=== PATIENT | female | born 1945 | race African-American/Black ===

== ENCOUNTER → 2023-07-12 10:22 | Outpatient (BNVA) | payer MEDICARE, OTHER, SELFPAY | PROVIDERS: PCP Internal Medicine Endocrinology, Diabetes & Metabolism; Visit Provider Surgery ==

== ENCOUNTER 2023-08-08 13:39 | Outpatient (AMB) | payer MEDICARE, SELFPAY ==
[2023-08-08 13:49] VITALS: BP 157/67; PULSE 73; TEMP 36.4; O2SAT 94; BMI 44.3
--- NOTE | 2023-08-08 13:49 | MHC.OFFVISWM ---
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 Allergies celecoxib [From Celebrex] Allergy (Severe, Verified 08/08/23 13:52) Anaphylaxis Sulfa (Sulfonamide Antibiotics) Allergy (Intermediate, Verified 08/08/23 13:52) Rash amphotericin B [From Amphocin] Allergy (Mild, Verified 08/08/23 13:52) Rash iv dye Allergy (Intermediate, Uncoded 08/08/23 13:52) Anaphylaxis Medication List - Last Reconciled 08/08/23 by DESTINEE Cowart calcium carbonate 500 mg PO DAILY cyanocobalamin (vitamin B-12) 1,000 mcg PO DAILY cyclobenzaprine 10 mg PO TID escitalopram oxalate (Lexapro) 10 mg PO DAILY gabapentin 400 mg PO TID ipratropium-albuterol 18-103 mcg/actuation sprays inhalation omeprazole 40 mg PO DAILY oxybutynin chloride ER 10 mg PO DAILY semaglutide (Ozempic) 2 mg subcut QWEEK valacyclovir 1,000 mg PO Q8H HPI Comments Details: Pt is here to start the [facility] surgical weight loss program. Her goal is to lose weight and achieve a healthy lifestyle as well as to improve, if not resolve, obesity related medical conditions, including arthritis. She reports she underwent gastric bypass in approximately 1997 in [facility] by Dr. Hernando Carpenter. Current weight is 242.2 pounds with a BMI of 44.3. She has returned to [place] multiple times to follow with her orthopedic surgeon who states that she needs to lose weight to perform her needed left total knee replacement. This is under a workman's comp case. Additionally, she has not seen bariatric surgery for follow-up in approximately 10 years. She lives with her . She does not work. Takes PPI 3-4 x per week takes MVI 3-4 x per week. She wakes at:?6 am, and goes to bed at?8 pm. Dinner is at 6 pm. Breakfast: 1 egg w turkey [place], coffee w splenda and almond milk AM snack: fruit and cottage cheese Lunch: skip or leftover or fruit, toast w jam PM snack: chips Dinner: fish, chicken, pasta w seafood After dinner: skip Other snacks: cracker, benevido wafer, Liquids: 16 oz water daily, no soda, peach juice Alcohol/marijuana/tobacco intake: glass of wine per day, peach juice and [place] or 1800 tequila 2-3 x per week, no cannabis, no tobacco Exercise: no formal exercise, afraid of water stationary bike bike at home GERD score: 22 AMBROSE score: 0 ESS score: 6 QOL score: 90 PFSH Surgical History Hx of gastric bypass Hx of total knee replacement Hx of endoscopy Hx of colonoscopy Social History Alcohol intake: current Alcohol intake frequency: a few times a week Alcohol type: wine and hard liquor Physical Exam Const General: cooperative, healthy appearing and no acute distress Orientation/consciousness: patient oriented x3 HEENT Head: Yes normal to inspection Ears: hearing grossly normal bilaterally General nose exam: Normal external nose present Face and sinus: Yes normal facial exam Eyes General: appearance normal, both eyes and all related structures Resp Effort & Inspection: normal respiratory effort Auscultation: clear to auscultation bilaterally Cardio Rate: regular rate Rhythm: regular rhythm Heart sounds: S1 normal heart sound present and S2 normal heart sound present GI Inspection: Yes normal to inspection, No distended and Yes obesity Palpation (GI): Soft to palpation, nontender and no guarding Auscultation: normal bowel sounds Skin General skin exam: no rashes or lesions noted Neuro General: patient oriented x3 Extrem General: Yes edema (1+ BLE) Psych Appearance: grossly normal Mental Status: mental status grossly normal Speech and movement: Normal speech and movement present Affect: normal affect Attitude: cooperative Assessment & Plan Assessment & Plan (1) Morbid obesity: Code(s): E66.01 - Morbid (severe) obesity due to excess calories Category: Medical Plan: This is a?77 yo female who will start our weight loss program to prepare for possible revision of previous bariatric surgery.? I have encouraged her to try to get the operative notes from her previous bariatric surgeon in [place], Dr. Hernando Carpenter, ? Adequate sleep of 7-8 hours per night discussed, awakening at 6 am and going to bed at 8 pm ? Purchase body composition analyzer scale (Renpho recommended) and check weight weekly. The best time to do this is first thing in the morning after going to the bathroom. 1. Nutritional counseling: Be sure to careful read the number of scoops per shake Start with 3 Pure protein shakes, First shake (1 scoop in 8 oz unsweetened almond milk) at 7am-9am, second shake (1/2 scoop in 8 oz unsweetened almond milk) at 10am-12pm 1 Zone Perfect protein bar ([employer], [employer]) at 1pm-3pm. Third shake (1 scoop in 8 oz unsweetened almond milk) at 4pm-6pm Dinner at 630pm (6 forks of protein and 6 forks of salad/vegetables). Meal to include lean meat (beef, fish, pork, turkey, chicken), cooked vegetables or a salad with olive oil and/or fruits (berries, pears, apples, kiwi). Avoid salt, breads, potatoes, rice, pasta, desserts. Try to drink 64 oz of water daily and avoid soda and juices. ?2. Each shake would be drunk slowly, like coffee in a period of 2 hours. ?3. Cut each bar in 4 pieces and eat each piece in 30 min ?to make each bar last 2 hours. ?4. I emphasized the importance of measuring accurately the food portion and measure it carefully when serving the food on the plate ?5. The meal portions include 6 full-size forks of meat and 6 full-size forks of salad. You always eat the meat portion but you can replace up to half of the forks of salad/vegetables with rice, potatoes or pasta, or a fruit ?if you like. The less you do it the better weight loss will be. ?6. One full-size fork is what can be scooped on the fork without falling aside and not what can be bit with the fork. Use regular forks like those you find in a typical restaurant. ?7.? Please send me weight measurements as soon as possible and then once a week. Always include your diet and exercise plan. Alternatively come weekly at the office for weight checks and send me the measurements. ?8. Exercise counseling: Begin by watching a stretching for beginners video. Start slowly and begin to stretch your muscles. You should do this before and after each exercise session to prevent injury. Please join [employer] gym near your home. Ask the assistant spa manager or one of the trainers how to use the machines if you are unfamiliar with them. Start elliptical with a resistance of 0. Increase resistance by 1 every 3 min to your most comfortable resistance with a max resistance of 5. Reduce the resistance by 1 every 3 minutes back down to 2 and repeat cycles for 300 calories. Alternatively, start treadmill with a speed of 2.5 and incline of 0, increasing incline by 1 every 3 minutes to the highest comfortable level (max 5 for now) then decrease in the same fashion. Repeat process to a goal of 300 calories. Goal of 2000 calories burned or more weekly. You may also consider use of the stationary bike. The easiest would be to chose the fat-burn or interval training program on the machine and do this until you reach the 300 calorie goal. Alternatively, you can manually adjust the resistance in a similar fashion as mentioned above, (resistance of 2-8 with a goal speed of 12 mph). Tracking calories is essential. 9. Alternatively start walking outside daily, tracking calories with a goal of 300 calories per day, daily. You can download the mya [employer] Run Rule. which can track your time, distance and calories while walking outside. You press start in the mya when you start and then stop when you are finished. 10.? It is important to communicate weekly by text 11. Discussed and answered all questions regarding?obtained consent to participate in the [facility]?Registry. 12. Please follow the diet plan exactly, without any change. If you do not like something about the plan or you feel hungry, you need to communicate with me so I can help you revise the plan. You should not change the plan yourself. Text me at [phone] 13. Goal is to lose at least 12 pounds in the first month 14. Try to get all available records from your previous surgery from Dr. Mccurdy in [place] as well as any recent office notes from his office. 15. Please get labs within 1 week. Patient is morbidly obese and is not considered stable at this time.?I spent a total of 70 minutes reviewing/updating records, examining the patient and counseling the patient on weight management as detailed above. Orders: Orders Hemoglobin A1c Today E66.01 - Morbid (severe) obesity due to excess calories, Z98.84 - Bariatric surgery status IRON PROFILE Today E66.01 - Morbid (severe) obesity due to excess calories, Z98.84 - Bariatric surgery status Vitamin B1 Today E66.01 - Morbid (severe) obesity due to excess calories, Z98.84 - Bariatric surgery status TSH reflex Free T4 Today E66.01 - Morbid (severe) obesity due to excess calories, Z98.84 - Bariatric surgery status Vitamin D 25-OH Total Today E66.01 - Morbid (severe) obesity due to excess calories, Z98.84 - Bariatric surgery status Insulin Today E66.01 - Morbid (severe) obesity due to excess calories, Z98.84 - Bariatric surgery status Complete Blood Count Auto Diff Today E66.01 - Morbid (severe) obesity due to excess calories, Z98.84 - Bariatric surgery status Lipid Panel Today E66.01 - Morbid (severe) obesity due to excess calories, Z98.84 - Bariatric surgery status Vitamin B12 and Folate Today E66.01 - Morbid (severe) obesity due to excess calories, Z98.84 - Bariatric surgery status Zinc Today E66.01 - Morbid (severe) obesity due to excess calories, Z98.84 - Bariatric surgery status C Reactive Protein Today E66.01 - Morbid (severe) obesity due to excess calories, Z98.84 - Bariatric surgery status Vitamin A Today E66.01 - Morbid (severe) obesity due to excess calories, Z98.84 - Bariatric surgery status Ferritin Today E66.01 - Morbid (severe) obesity due to excess calories, Z98.84 - Bariatric surgery status Basic Metabolic Panel Today E66.01 - Morbid (severe) obesity due to excess calories, Z98.84 - Bariatric surgery status
== END 2023-08-08 17:47 | disposition home or self-care (01) ==
PROVIDERS: PCP Internal Medicine Endocrinology, Diabetes & Metabolism; Visit Provider Physician Assistant Surgical
DX: E66.01 Morbid (severe) obesity due to excess calories (principal)
CPT/HCPCS: 99205

== ENCOUNTER → 2023-08-08 13:39 | Outpatient (BNVA) | payer OTHER, MEDICARE, SELFPAY | PROVIDERS: PCP Internal Medicine Endocrinology, Diabetes & Metabolism; Visit Provider Physician Assistant Surgical ==